=== PATIENT | female | born 1980 | race African-American/Black ===

== ENCOUNTER 2019-02-06 14:02 | Emergency (ER) | payer OTHER ==
[~2019-02-06] VITALS: Ht 160 cm; Wt 136.1 kg
[2019-02-06 14:30] LABS: ABSOLUTE NEUTROPHILS 4.1 thou/uL (1.4-8.2); BASOPHILS 0.5 % (0.0-2.0); EOSINOPHILS 0.8 % (0.0-3.0); HEMATOCRIT 36.7 % (37.0-47.0); HEMOGLOBIN 12.3 gm/dL (12.0-15.0); LYMPHOCYTES 32.8 % (24.0-44.0); MCH 28.5 pg (26.0-34.0); MCHC 33.5 g/dL (28.0-37.0); MCV 85.2 fL (80.0-100.0); MONOCYTES 11.4 % (1.0-8.0); PLATELET COUNT 201 thou/uL (150-400); POLYS 54.5 % (36.0-66.0); RDW 13.8 % (10.5-14.5); WBC 7.4 thou/uL (4.0-11.0)
[2019-02-06 14:43] LABS: ANION GAP 5 mmol/L (7-16); BUN 8 mg/dL (7-18); CALCIUM 8.8 mg/dL (8.5-10.1); CHLORIDE 104 mmol/L (98-107); CO2 27 mmol/L (21-32); CREATININE 0.7 mg/dL (0.6-1.0); GLUCOSE 116 mg/dL (74-106); POTASSIUM 3.5 mmol/L (3.5-5.1); SODIUM 136 mmol/L (136-145)
[2019-02-06 14:52] LABS: URINE BILIRUBIN NEGATIVE (Negative); URINE BLOOD TRACE (Negative); URINE CLARITY CLEAR; URINE COLOR YELLOW; URINE GLUCOSE-RANDOM* NEGATIVE (Negative); URINE KETONES NEGATIVE (Negative); URINE LEUKOCYTES-REFLEX NEGATIVE (Negative); URINE NITRITE-REFLEX NEGATIVE (Negative); URINE PROTEIN (DIPSTICK) 1+ (Negative); URINE SPECIFIC GRAVITY 1.025 (1.005-1.035); URINE UROBILINOGEN 0.2 E.U./dl (0.2-1.0)
[2019-02-06 14:53] LABS: ALBUMIN 3.3 g/dL (3.4-5.0); SGOT 20 U/L (15-37); SGPT 32 U/L (30-65); TOTAL BILIRUBIN 0.2 mg/dL (<0.1-1.0); TOTAL PROTEIN 8.4 g/dL (6.4-8.2); TROPONIN-I <0.06 ng/mL (<0.06)
[2019-02-06 15:10] LABS: SQUAMOUS >10 Many /LPF (0-3)
[2019-02-06 15:11] LABS: BACTERIA-REFLEX 1-9 Few /HPF (None Seen); CASTS None Seen /LPF (None Seen); CRYSTALS None Seen /LPF (None Seen); URINE RBC 0-2 Rare /HPF (0-2); URINE WBC-REFLEX 0-5 Rare /HPF (0-5)
[2019-02-06] MEDS ORDERED: ULTRAM 50MG TAB50 MG PO (17:59)
[2019-02-06 18:41] VITALS: BP 143/83
--- NOTE | 2019-02-08 13:47 | EKG ---
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: CHRISTIANO : 1980 Requested By: Rogelio Jones Order Number: [id number] MD: Epifanio Dotson Measurements Intervals [place] Rate: 104 P: 50 DC: 151 QRS: 30 QRSD: 77 T: 5 QT: 320 QTc: 421 Interpretive Statements Sinus tachycardia Left ventricular hypertrophy No previous ECG available for comparison Electronically Signed On 02-08-2019 13:46:59 CDT by Epifanio Dotson [email or web address] <ELECTRONICALLY SIGNED> By: Epifanio Dotson MD, [facility] 02/08/19 1346 1411 1411 Epifanio Dotson MD, FACC /EPI
== END 2019-02-06 18:42 | disposition home or self-care (01) ==
LOC: ER 14:02
PROVIDERS: Physician Assistant
DX: R07.89 Other chest pain (principal)